=== PATIENT | female | born 1950 | race Caucasian/White ===

== ENCOUNTER 2020-09-11 13:25 | Inpatient (IN) | payer MEDICARE, OTHER ==
[~2020-09-11] VITALS: Ht 157.5 cm; Wt 48.1 kg
--- NOTE | 2020-09-11 13:35 | NUR ---
at bedside for assessment
[2020-09-11 14:18] LABS: BASOPHILS % (AUTO) 0.3 % (0.0-2.0); EOSINOPHILS % (AUTO) 0.2 % (0.0-7.0); HEMATOCRIT 37.9 % (31.2-41.9); HEMOGLOBIN 13.5 g/dL (10.9-14.3); LYMPHOCYTES # (AUTO) 1.2 K/uL (20.0-40.0); LYMPHOCYTES % (AUTO) 15.4 % (20.5-51.5); MEAN CORPUSCULAR HEMOGLOBIN 30.7 uug (24.7-32.8); MEAN CORPUSCULAR HGB CONC 36 g/dL (32.3-35.6); MEAN CORPUSCULAR VOLUME 86.4 fL (75.5-95.3); MONOCYTES # (AUTO) 0.6 K/uL (2.0-10.0); MONOCYTES % (AUTO) 8.5 % (0.0-11.0); NEUTROPHILS # (AUTO) 5.7 K/uL (1.8-8.9); NEUTROPHILS % (AUTO) 75.6 % (38.5-71.5); PLATELET COUNT (AUTO) 167 K/uL (179-408); RED BLOOD CELL COUNT(AUTO) 4.39 MIL/uL (3.63-4.92); WHITE BLOOD COUNT (AUTO) 7.6 K/uL (3.8-11.8)
[2020-09-11] MEDS ORDERED: DOCUSATE PO (14:25)
[2020-09-11] MEDS ORDERED: BENAZEPRIL PO (14:25)
[2020-09-11] MEDS ORDERED: HALO5TAB PO (14:25)
[2020-09-11] MEDS ORDERED: ROSUVASTATIN PO (14:25)
[2020-09-11] MEDS ORDERED: JANUVIA PO (14:25)
[2020-09-11] MEDS ORDERED: LEVOTHYROXIN PO (14:25)
[2020-09-11] MEDS ORDERED: AMLODIPINE PO (14:25)
[2020-09-11] MEDS ORDERED: HYDROCHLOROTHIAZIDE PO (14:25)
--- NOTE | 2020-09-11 14:25 | NUR ---
MEDICATION DOSAGES CANNOT BE CURRENTLY DETERMINED - NOT IN PATIENT'S TRANSFER RECORDS - PT IS A POOR HISTORIAN AT THIS TIME.
[2020-09-11 14:26] LABS: CARBON DIOXIDE 27 mmol/L (21-32); CHLORIDE 88 mmol/L (98-107); GLUCOSE 137 mg/dL (74-106); POTASSIUM 3.2 mmol/L (3.5-5.1); UREA NITROGEN, BLOOD 16 mg/dL (7-18)
[2020-09-11 14:31] LABS: ACETAMINOPHEN < 2.0 ug/mL (10-30); ALANINE AMINOTRANSFERASE 32 U/L (14-59); ALKALINE PHOSPHATASE 67 U/L (50-136); ASPARTATE AMINOTRANSFERASE 51 U/L (15-37); BILIRUBIN,DIRECT 0.2 mg/dL (0.0-0.2); BILIRUBIN,TOTAL 0.8 mg/dL (0.2-1.0); TOTAL PROTEIN, SERUM 7.3 g/dL (6.4-8.2)
--- NOTE | 2020-09-11 14:48 | NUR ---
patient is cleared to transfer to U, 137 B room
[2020-09-11 14:49] LABS: ETHANOL < 3 MG/DL (0-0)
[2020-09-11] MEDS ORDERED: POTASSIUM CHLORIDE 20 MEQ TAB.PRT.SR PO ONE (15:15)
[2020-09-11] MEDS ORDERED: POTASSIUM CHLORIDE 20 MEQ TAB.PRT.SR ONE (15:27)
[2020-09-11 15:44] LABS: *BILIRUBIN,URIN NEGATIVE (NEGATIVE); *BLOOD, URINE TRACE LYSED (NEGATIVE); *CLARITY,URINE CLEAR (CLEAR); *COLOR,URINE YELLOW (YELLOW); *KETONES,URINE 2+ (NEGATIVE); *UROBILINOGEN,URINE 0.2 E.U./dl (NORMAL); LEUKOCYTE ESTERASE ,URINE 2+ (NEGATIVE); NITRITE, URINE NEGATIVE (NEGATIVE); UGLUCOSE NEGATIVE (NEGATIVE)
[2020-09-11 15:51] LABS: *AMPHETAMINE, URINE NEGATIVE (NEGATIVE); *CANNABINOID, URINE NEGATIVE (NEGATIVE); *COCCAINE, URINE NEGATIVE (NEGATIVE); *OPIATE, URINE NEGATIVE (NEGATIVE); *PHENCYCLIDINE SCREEN,URINE NEGATIVE (NEGATIVE)
[2020-09-11] MEDS ORDERED: CEFTRIAXONE 1 G in IV DEXTROSE 5% 50 ML IV SCH (16:00)
[2020-09-11] MEDS ORDERED: IV NORMAL SALINE 1000 ML BAG IV ONE (16:00)
[2020-09-11] MEDS ORDERED: CEFTRIAXONE /D5W 50ML IVPB **ER PYXIS IV ONE (16:04)
[2020-09-11 17:00] VITALS: BP 116/70
[2020-09-11] MEDS ORDERED: MAGNESIUM HYDROXIDE 30 ML LIQUID UDC PO PRN (17:00)
--- NOTE | 2020-09-11 17:11 | NUR ---
Pt. admitted to MHU , under care of Dr. Paz Belongs List completed and all belongings sent
--- NOTE | 2020-09-11 18:16 | NUR ---
Admitted a 69 yers old patient from ER with 5150 for DTS,Per 5150 DTS due to client knocking on the door stating "she is depressed,paranoid, and having suicidal ideation with no specified plan.", Also,reported "hearing voices..", client presented with labile mood and yelling profanities. she became fearful, stating "she misses her father..", client was unable/unwilling to answer questions regarding mental/medical health history, appears to be responding to internal stimuli. Client needs further psychiatric evaluation. patient is A/O x3 denies any SI at this time , notified.
[2020-09-11 19:08] LABS: THYROID STIMULATING HORMONE 0.023 mIU/mL (0.358-3.740)
[2020-09-11] MEDS ORDERED: PNEUMOCOCCAL 23-VAL P-SAC VAC 0.5 ML VIAL IM ONE (20:00)
[2020-09-11 20:04] VITALS: BP 114/70
[2020-09-12] MEDS: TEMAZEPAM 7.5 MG CAPSULE PO PRN ×2 (01:37→22:14)
[2020-09-12] MEDS: ACETAMINOPHEN 325 MG TABLET PO PRN (01:37)
--- NOTE | 2020-09-12 06:51 | NUR ---
UP AND DOWN DURING THE NIGHT,TRYING TO URINATE.STAFF EXPLAINED TO PT THAT SHE HAS BLADDER INFECTION WHICH SOMETIMES MADE HER FEEL LIKE TO GO MORE OFTEN THAN NORMAL.ENC.PO FLUID,THEN FINALLY SHE WENT A LOT IN THE TOILET PLUS HER DIAPER WAS SOAKING WET TOO. WILL CONTINUE TO MONITOR.
[2020-09-12 07:30] VITALS: BP 111/54
[2020-09-12 07:45] LABS: POTASSIUM 3.4 mmol/L (3.5-5.1)
[2020-09-12 07:53] LABS: CREATININE 1.1 mg/dL (0.6-1.3)
[2020-09-12] MEDS ORDERED: POTASSIUM CHLORIDE 20 MEQ TAB.PRT.SR PO ONE (08:15)
[2020-09-12] MEDS: CEphaleXIN 500 MG CAPSULE PO SCH ×2 (08:20→21:10)
--- NOTE | 2020-09-12 11:43 | NUR ---
unable to verified home medication dosage for medication reconciliation ,will continue follow up.
[2020-09-12] MEDS ORDERED: SITA50TA PO (12:41)
[2020-09-12] MEDS ORDERED: HYDR25TA4 PO (12:41)
[2020-09-12] MEDS ORDERED: LAMO200T10 PO (12:41)
[2020-09-12] MEDS ORDERED: BENA40TA8 PO (12:41)
[2020-09-12] MEDS ORDERED: LEVO88TA5 PO (12:41)
[2020-09-12] MEDS ORDERED: ROSU10TA2 PO (12:41)
[2020-09-12] MEDS ORDERED: AMLO10TA59 PO (12:41)
[2020-09-12] MEDS ORDERED: DOCU250C14 PO (12:41)
[2020-09-12] MEDS ORDERED: PNEUMOCOCCAL 23-VAL P-SAC VAC 0.5 ML VIAL IM ONE (13:00)
--- NOTE | 2020-09-12 13:20 | NUR ---
KOURTNEY Initial Discharge Plan: Patient currently resides at [address] [place] [address] ([phone]). Patient would like to return back upon discharge. KOURTNEY spoke with Keila Barry Surgical [employer] Inspector ([phone] ext [phone]) and she stated patient can return upon discharge. KOURTNEY will continue to work with patient, family, and MD to ensure a safe and proper discharge plan.
--- NOTE | 2020-09-12 13:20 | NUR ---
KOURTNEY City Solicitor Contact: KOURTNEY spoke with Keila Barry City Solicitor ([phone]) and discussed treatment and discharge plan.
--- NOTE | 2020-09-12 13:22 | NUR ---
Firearms Report: Cost Manager completed and submitted a [employer] firearms report for 5150 danger to self certifications. A copy of report has been placed in patient chart.
[2020-09-12] MEDS ORDERED: SITAGLIPTIN PHOSPHATE PO SCH (13:30)
[2020-09-12] MEDS: HYDROCHLOROTHIAZIDE 25 MG TABLET PO SCH (14:00)
[2020-09-12] MEDS: AMLODIPINE 10 MG TABLET PO SCH (14:30)
[2020-09-12] MEDS: BENAZEPRIL HCL 20 MG TABLET PO SCH (14:30)
[2020-09-12 15:26] VITALS: BP 125/49
--- NOTE | 2020-09-12 18:12 | NUR ---
patient is A/O x3 verbalizer needs known ,patient is anxiety needy and intrusive, with poor insight and judgement.compliant with all medication ,will continue close monitoring.
[2020-09-12 20:14] VITALS: BP 116/52
[2020-09-12] MEDS ORDERED: HALOPERIDOL 5 MG TABLET PO SCH (21:00)
--- NOTE | 2020-09-13 06:52 | NUR ---
09/11/20 SODIUM CHLORIDE 0.9% IV FLUIDS STOP DATE 09/11/20 AT 1730
[2020-09-13 07:30] VITALS: BP 128/70
[2020-09-13] MEDS ORDERED: LEVOTHYROXINE SODIUM 88 MCG TABLET PO SCH (07:30)
[2020-09-13 08:05] LABS: MAGNESIUM 2.2 mg/dL (1.8-2.4); PHOSPHOROUS 2.5 mg/dL (2.5-4.9); POTASSIUM 3.7 mmol/L (3.5-5.1)
[2020-09-13 08:14] LABS: THYROID STIMULATING HORMONE 0.043 mIU/mL (0.358-3.740)
[2020-09-13] MEDS: ATORVASTATIN 20 MG TABLET PO SCH (09:02)
[2020-09-13] MEDS: CEphaleXIN 500 MG CAPSULE PO SCH ×2 (09:02→20:18)
[2020-09-13] MEDS: AMLODIPINE 10 MG TABLET PO SCH (09:02)
[2020-09-13] MEDS: BENAZEPRIL HCL 20 MG TABLET PO SCH (09:03)
[2020-09-13] MEDS: HYDROCHLOROTHIAZIDE 25 MG TABLET PO SCH (09:03)
[2020-09-13 10:00] LABS: URIC ACID 7.8 mg/dL (2.6-6.0)
[2020-09-13 16:00] VITALS: BP 151/64
[2020-09-13] MEDS: OXCARBAZEPINE 150 MG TABLET PO SCH (17:33)
[2020-09-13] MEDS: ARIPIPRAZOLE 5 MG TABLET PO SCH (20:17)
[2020-09-13 20:19] VITALS: BP 147/53
[2020-09-13] MEDS: TEMAZEPAM 7.5 MG CAPSULE PO PRN (21:21)
[2020-09-13] MEDS: ACETAMINOPHEN 325 MG TABLET PO PRN (21:21)
[2020-09-14] MEDS: LEVOTHYROXINE SODIUM 75 MCG TABLET PO SCH (06:39)
[2020-09-14 07:30] VITALS: BP 135/55
[2020-09-14] MEDS ORDERED: LEVOTHYROXINE SODIUM 88 MCG TABLET PO SCH (07:30)
--- NOTE | 2020-09-14 08:30 | NUR ---
RECEIVED PATIENT IN BED JUST FINISHED HER BREAKFAST WITH GOOD APPETITE REMAIN ON ANTIBIOTICS FOR UTI ORDERED WITH NO ADVERSE OR ALLERGIC REACTIONS AT THIS TIME PATIENT IS DEPRESSED DENIES SI ENCOURAGED TO GET OUT OF ROOM AND PARTICIPATE IN ACTIVITIES.ALL NEEDS PROVIDED WILL CONTINUE TO OBSERVE
[2020-09-14] MEDS: ARIPIPRAZOLE 5 MG TABLET PO SCH ×2 (08:32→20:06)
[2020-09-14] MEDS: CEphaleXIN 500 MG CAPSULE PO SCH ×2 (08:32→20:06)
[2020-09-14] MEDS: BENAZEPRIL HCL 20 MG TABLET PO SCH (08:32)
[2020-09-14] MEDS: ATORVASTATIN 20 MG TABLET PO SCH (08:33)
[2020-09-14] MEDS: OXCARBAZEPINE 150 MG TABLET PO SCH ×2 (08:33→16:43)
[2020-09-14] MEDS: AMLODIPINE 10 MG TABLET PO SCH (08:34)
[2020-09-14] MEDS: HYDROCHLOROTHIAZIDE 25 MG TABLET PO SCH (08:35)
--- NOTE | 2020-09-14 09:30 | NUR ---
NOTED THAT PATIENT HAS SOME SHAKING OF HER UPPER AND LOWER EXT WHEN ASKED WHY STATED DOES NOT KNOW STOPS TEMPORARILY AND STARTS AGAIN.WILL CONTINUE TO OBSERVE.
[2020-09-14] MEDS ORDERED: hydrOXYzine HCL 25 MG TABLET PO ONE (12:30)
[2020-09-14] MEDS: BENZTROPINE MESYLATE 0.5 MG TABLET PO SCH ×2 (13:44→16:43)
--- NOTE | 2020-09-14 15:18 | NUR ---
PATIENT IN ROOM CALLED ME AND REQUESTED FOR IN HER OWN WORD MOOD STABILIZER STATED THAT SHE NEEDS MEDICATION TO CALM HER DOWN SHE IS NOT AGITATED OR RESTLESS NOT BEING HYPERVOCAL AT THIS TIME SHE HAS NO PRN ORDER SO I CALLED DR MCGHEE FOR ORDER LEFT HER A MESSAGE ON HER VOICE MAIL AWAITING FOR RETURN CALL.
[2020-09-14 16:36] VITALS: BP 129/52
[2020-09-14] MEDS ORDERED: LORAZEPAM 0.5 MG TABLET PO PRN (17:30)
--- NOTE | 2020-09-14 18:00 | NUR ---
REQUESTED ME TO CALL HER FRIEND WHO IS SHE SAID WAS HER THERAPIST CALLED HER AND UNABLE TO REACH HER ASKED PATIENT IF SHE WANTED ME TO CALL HER SON INSTEAD AND SHE DECLINED.RESTING IN HER ROOM AT THIS TIME NO C/O ANY BEHAVIORAL ISSUES AT THIS TIME.
[2020-09-14 20:04] VITALS: BP 122/61
[2020-09-14] MEDS: TEMAZEPAM 7.5 MG CAPSULE PO PRN (21:56)
[2020-09-15] MEDS: LEVOTHYROXINE SODIUM 75 MCG TABLET PO SCH (06:21)
[2020-09-15 07:30] VITALS: BP 134/69
[2020-09-15] MEDS: CEphaleXIN 500 MG CAPSULE PO SCH ×2 (08:23→20:17)
[2020-09-15] MEDS: OXCARBAZEPINE 150 MG TABLET PO SCH (08:23)
[2020-09-15] MEDS: ATORVASTATIN 20 MG TABLET PO SCH (08:23)
[2020-09-15] MEDS: BENZTROPINE MESYLATE 0.5 MG TABLET PO SCH ×3 (08:23→18:03)
[2020-09-15] MEDS: ARIPIPRAZOLE 5 MG TABLET PO SCH (08:23)
[2020-09-15] MEDS: BENAZEPRIL HCL 20 MG TABLET PO SCH (08:24)
[2020-09-15] MEDS: AMLODIPINE 10 MG TABLET PO SCH (08:24)
[2020-09-15] MEDS: HYDROCHLOROTHIAZIDE 25 MG TABLET PO SCH (08:25)
--- NOTE | 2020-09-15 11:41 | NUR ---
SW Individual Therapy Note: SW met with patient today and provided brief individual counseling to address patient's presenting problem of suicidal ideation. SW assessed patient's level of suicidality. Patient expresses feeling depressed however denies current active suicidal ideation. SW helped patient identify coping skills to help with depression and anxiety. Patient demonstrates difficulty with expressing coping skills. Patient states she is "shaking" and feeling anxiety. SW attempted to calm patient's shaking and practiced breathing with patient. SW will remain available for patient for continued supportive counseling.
--- NOTE | 2020-09-15 14:54 | NUR ---
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 incontienence, assisted with her dieaper. compliant with her routine am meds. forgetfulness. Had been redirectable.
--- NOTE | 2020-09-15 15:37 | NUR ---
KOURTNEY PC Hearing: Patient had 5250 probable cause hearing today and it was upheld for grave disability.
[2020-09-15 16:00] VITALS: BP 128/70
[2020-09-15 20:10] VITALS: BP 132/70
[2020-09-15] MEDS: TEMAZEPAM 7.5 MG CAPSULE PO PRN (22:11)
--- NOTE | 2020-09-16 03:01 | NUR ---
RECEIVED PATIENT RESTING IN BED. MOOD WAS LOW AND APPEARED ANXIOUS WITH OCCASIONAL FORGETFULNESS.ABLE TO AMBULATE WITH FWW. TOOK ALL HER MEDICATIONS AND IS ON KEFLEX FOR UTI. LIBERAL FLUIDS ENCOURAGED WITH NO BURNING OR OTHER ADVERSE REACTION NOTED. LATER GIVEN RESTORIL PER HER REQUEST TO AID SLEEP.VISUAL CHECKS MADE ON HER FOR SAFETY. WILL CONTINUE TO MONITOR.
[2020-09-16] MEDS: LEVOTHYROXINE SODIUM 75 MCG TABLET PO SCH (06:37)
--- NOTE | 2020-09-16 06:45 | NUR ---
SHE SLEPT FOR 4:30 HOURS.
[2020-09-16 07:30] VITALS: BP 136/75
[2020-09-16] MEDS: BENZTROPINE MESYLATE 0.5 MG TABLET PO SCH ×3 (08:47→17:47)
[2020-09-16] MEDS: AMLODIPINE 10 MG TABLET PO SCH (08:48)
[2020-09-16] MEDS: CEphaleXIN 500 MG CAPSULE PO SCH ×2 (08:48→20:09)
[2020-09-16] MEDS: ATORVASTATIN 20 MG TABLET PO SCH (08:48)
[2020-09-16] MEDS: ARIPIPRAZOLE 5 MG TABLET PO SCH ×3 (08:48→17:47)
[2020-09-16] MEDS: OXCARBAZEPINE 150 MG TABLET PO SCH ×3 (08:49→17:47)
[2020-09-16] MEDS: BENAZEPRIL HCL 20 MG TABLET PO SCH (08:49)
[2020-09-16] MEDS: HYDROCHLOROTHIAZIDE 25 MG TABLET PO SCH (08:52)
[2020-09-16 15:24] VITALS: BP 115/65
[2020-09-16 20:05] VITALS: BP 118/58
[2020-09-16] MEDS: ACETAMINOPHEN 325 MG TABLET PO PRN (20:09)
[2020-09-16] MEDS: TEMAZEPAM 7.5 MG CAPSULE PO PRN (22:33)
[2020-09-17] MEDS: LEVOTHYROXINE SODIUM 75 MCG TABLET PO SCH (06:18)
[2020-09-17 07:30] VITALS: BP 108/47
[2020-09-17] MEDS: ARIPIPRAZOLE 5 MG TABLET PO SCH ×3 (08:49→17:23)
[2020-09-17] MEDS: BENAZEPRIL HCL 20 MG TABLET PO SCH (08:49)
[2020-09-17] MEDS: CEphaleXIN 500 MG CAPSULE PO SCH ×2 (08:49→20:57)
[2020-09-17] MEDS: BENZTROPINE MESYLATE 0.5 MG TABLET PO SCH ×3 (08:50→17:23)
[2020-09-17] MEDS: ATORVASTATIN 20 MG TABLET PO SCH (08:50)
[2020-09-17] MEDS: OXCARBAZEPINE 150 MG TABLET PO SCH ×3 (08:50→17:23)
[2020-09-17] MEDS: AMLODIPINE 10 MG TABLET PO SCH (08:50)
[2020-09-17] MEDS: HYDROCHLOROTHIAZIDE 25 MG TABLET PO SCH (09:39)
[2020-09-17] MEDS: MAG HYDROX/AL HYDROX/SIMETH 30 ML LIQUID UDC PO PRN (15:14)
[2020-09-17 16:00] VITALS: BP 112/71
[2020-09-17 17:31] LABS: CALCITRIOL VIT D,1,25 DIHYDROX 60.5
[2020-09-17 20:18] VITALS: BP 131/71
[2020-09-17] MEDS: TEMAZEPAM 7.5 MG CAPSULE PO PRN (22:49)
[2020-09-18] MEDS: MAG HYDROX/AL HYDROX/SIMETH 30 ML LIQUID UDC PO PRN ×2 (06:33→08:49)
[2020-09-18] MEDS: LEVOTHYROXINE SODIUM 75 MCG TABLET PO SCH (06:33)
[2020-09-18 07:30] VITALS: BP 136/66
[2020-09-18 07:40] LABS: BASOPHILS % (AUTO) 0.8 % (0.0-2.0); EOSINOPHILS % (AUTO) 0.9 % (0.0-7.0); HEMATOCRIT 36.2 % (31.2-41.9); HEMOGLOBIN 12.4 g/dL (10.9-14.3); LYMPHOCYTES # (AUTO) 1.3 K/uL (20.0-40.0); LYMPHOCYTES % (AUTO) 32.6 % (20.5-51.5); MEAN CORPUSCULAR HEMOGLOBIN 30.4 uug (24.7-32.8); MEAN CORPUSCULAR HGB CONC 34 g/dL (32.3-35.6); MEAN CORPUSCULAR VOLUME 89.1 fL (75.5-95.3); MONOCYTES # (AUTO) 0.4 K/uL (2.0-10.0); MONOCYTES % (AUTO) 10.8 % (0.0-11.0); NEUTROPHILS # (AUTO) 2.3 K/uL (1.8-8.9); NEUTROPHILS % (AUTO) 54.9 % (38.5-71.5); PLATELET COUNT (AUTO) 219 K/uL (179-408); RED BLOOD CELL COUNT(AUTO) 4.07 MIL/uL (3.63-4.92); WHITE BLOOD COUNT (AUTO) 4.1 K/uL (3.8-11.8)
[2020-09-18 07:57] LABS: CREATININE 0.9 mg/dL (0.6-1.3); POTASSIUM 3.2 mmol/L (3.5-5.1)
[2020-09-18] MEDS: BENAZEPRIL HCL 20 MG TABLET PO SCH (08:26)
[2020-09-18] MEDS: CEphaleXIN 500 MG CAPSULE PO SCH ×2 (08:26→20:03)
[2020-09-18] MEDS: ATORVASTATIN 20 MG TABLET PO SCH (08:26)
[2020-09-18] MEDS: OXCARBAZEPINE 150 MG TABLET PO SCH ×3 (08:27→16:20)
[2020-09-18] MEDS: AMLODIPINE 10 MG TABLET PO SCH (08:27)
[2020-09-18] MEDS: HYDROCHLOROTHIAZIDE 25 MG TABLET PO SCH (08:27)
[2020-09-18] MEDS: BENZTROPINE MESYLATE 0.5 MG TABLET PO SCH ×3 (08:27→16:20)
[2020-09-18] MEDS: ARIPIPRAZOLE 5 MG TABLET PO SCH ×3 (08:28→16:19)
[2020-09-18] MEDS ORDERED: POTASSIUM CHLORIDE 20 MEQ TAB.PRT.SR PO SCH (10:00)
[2020-09-18 15:10] VITALS: BP 106/57
[2020-09-18] MEDS: ACETAMINOPHEN 325 MG TABLET PO PRN (17:59)
[2020-09-18 20:11] VITALS: BP 119/72
[2020-09-18] MEDS: TEMAZEPAM 7.5 MG CAPSULE PO PRN (22:14)
--- NOTE | 2020-09-19 02:45 | NUR ---
patient noted sitting in her bed. 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 (actually, it is not). pt was reassured and redirected. she is able to verbally CFS. will continue to monitor.
[2020-09-19] MEDS: MAG HYDROX/AL HYDROX/SIMETH 30 ML LIQUID UDC PO PRN ×3 (04:14→20:29)
[2020-09-19] MEDS: LEVOTHYROXINE SODIUM 75 MCG TABLET PO SCH (06:18)
[2020-09-19] MEDS: PANTOPRAZOLE SODIUM 40 MG TABLET.DR PO SCH (06:18)
[2020-09-19 07:30] VITALS: BP 108/55
[2020-09-19] MEDS: AMLODIPINE 10 MG TABLET PO SCH (09:00)
[2020-09-19] MEDS: BENAZEPRIL HCL 20 MG TABLET PO SCH (09:00)
[2020-09-19] MEDS: HYDROCHLOROTHIAZIDE 25 MG TABLET PO SCH (09:00)
[2020-09-19] MEDS: OXCARBAZEPINE 150 MG TABLET PO SCH ×3 (09:08→20:29)
[2020-09-19] MEDS: ATORVASTATIN 20 MG TABLET PO SCH (09:08)
[2020-09-19] MEDS: BENZTROPINE MESYLATE 0.5 MG TABLET PO SCH ×3 (09:08→20:29)
[2020-09-19] MEDS: ARIPIPRAZOLE 5 MG TABLET PO SCH ×3 (09:08→20:29)
--- NOTE | 2020-09-19 09:39 | NUR ---
KOURTNEY Family Contact: SW received a call from patient's son, Guillaume Mosqueda ([phone]) and returned his call however left a message.
--- NOTE | 2020-09-19 12:20 | NUR ---
KOURTNEY SNF Referral: KOURTNEY faxed [facility] attention to [facility] for review and possible placement ([phone]). Addendum: 09/19/20 at 1447 by KAYLI BARROSO Patient is accepted at [facility] for placement.
[2020-09-19 15:12] VITALS: BP 136/77
--- NOTE | 2020-09-19 15:27 | NUR ---
KOURTNEY Individual Therapy Note: SW met with patient today and provided brief individual counseling to address patient's presenting problem of suicidal ideation. SW assessed patient's level of suicidality. Patient denies current suicidal ideation. SW discussed discharge planning with the patient. Patient verbalized that she would like SNF placement upon discharge. SW ensured that we will find a SNF placement for her for short-term. Patient is agreeable. SW will remain available for patient for continued supportive counseling.
[2020-09-19 20:07] VITALS: BP 128/63
[2020-09-19] MEDS: TEMAZEPAM 7.5 MG CAPSULE PO PRN (22:58)
[2020-09-20] MEDS: PANTOPRAZOLE SODIUM 40 MG TABLET.DR PO SCH (06:11)
[2020-09-20] MEDS: LEVOTHYROXINE SODIUM 75 MCG TABLET PO SCH (06:11)
[2020-09-20 08:12] VITALS: BP 123/75
[2020-09-20] MEDS: ARIPIPRAZOLE 5 MG TABLET PO SCH ×3 (08:26→20:32)
[2020-09-20] MEDS: OXCARBAZEPINE 150 MG TABLET PO SCH ×3 (08:26→20:32)
[2020-09-20] MEDS: ATORVASTATIN 20 MG TABLET PO SCH (08:26)
[2020-09-20] MEDS: BENAZEPRIL HCL 20 MG TABLET PO SCH (08:27)
[2020-09-20] MEDS: AMLODIPINE 10 MG TABLET PO SCH (08:27)
[2020-09-20] MEDS: BENZTROPINE MESYLATE 0.5 MG TABLET PO SCH ×3 (08:27→20:32)
[2020-09-20] MEDS: HYDROCHLOROTHIAZIDE 25 MG TABLET PO SCH (08:28)
[2020-09-20 16:00] VITALS: BP 137/69
[2020-09-20 20:02] VITALS: BP 116/55
[2020-09-20] MEDS: TEMAZEPAM 7.5 MG CAPSULE PO PRN (23:04)
[2020-09-21] MEDS: PANTOPRAZOLE SODIUM 40 MG TABLET.DR PO SCH (06:37)
[2020-09-21] MEDS: LEVOTHYROXINE SODIUM 75 MCG TABLET PO SCH (06:37)
[2020-09-21 07:04] LABS: EOSINOPHILS % (AUTO) 0.7 % (0.0-7.0); HEMATOCRIT 34.6 % (31.2-41.9); HEMOGLOBIN 12.3 g/dL (10.9-14.3); LYMPHOCYTES # (AUTO) 1.6 K/uL (20.0-40.0); LYMPHOCYTES % (AUTO) 38.4 % (20.5-51.5); MEAN CORPUSCULAR HEMOGLOBIN 31.5 uug (24.7-32.8); MEAN CORPUSCULAR HGB CONC 36 g/dL (32.3-35.6); MEAN CORPUSCULAR VOLUME 88.5 fL (75.5-95.3); MONOCYTES # (AUTO) 0.4 K/uL (2.0-10.0); MONOCYTES % (AUTO) 9.5 % (0.0-11.0); NEUTROPHILS # (AUTO) 2.1 K/uL (1.8-8.9); NEUTROPHILS % (AUTO) 50.4 % (38.5-71.5); PLATELET COUNT (AUTO) 212 K/uL (179-408); RED BLOOD CELL COUNT(AUTO) 3.91 MIL/uL (3.63-4.92); WHITE BLOOD COUNT (AUTO) 4.1 K/uL (3.8-11.8)
[2020-09-21 07:25] LABS: BILIRUBIN,TOTAL 0.4 mg/dL (0.2-1.0); MAGNESIUM 2.2 mg/dL (1.8-2.4); PHOSPHOROUS 2.9 mg/dL (2.5-4.9); POTASSIUM 3.6 mmol/L (3.5-5.1); TOTAL PROTEIN, SERUM 7.1 g/dL (6.4-8.2)
[2020-09-21 07:30] VITALS: BP 124/61
--- NOTE | 2020-09-21 07:59 | NUR ---
SW Discharge Note: Patient will be discharged to [facility] [address] [address] ([phone]). Patient will be provided transportation at 1:00pm via ambulance. Spoke with Eric the Admin Coordinator at the facility who states they are ready to accept the patient today. Patient is aware and agreeable with discharge plans. Patient is alert and oriented x4, is unable to plan for self-care however is willing to accept care at the facility. Patient denies any suicidal or homicidal ideation. Patient will follow-up at the facility with Psychiatrist Dr. Paz and Manager Fashion Dr. Guzman. Patient presents with calm mood and euthymic affect and shared she is looking forward to going to this new facility. Patients son, Guillaume Mosqueda ([phone]) is made aware and is agreeable with discharge plan. Patients case finisher Keila Barry ([phone]. [phone]) from [facility] is made aware of discharge plans.
[2020-09-21] MEDS: AMLODIPINE 10 MG TABLET PO SCH (09:52)
[2020-09-21] MEDS: OXCARBAZEPINE 150 MG TABLET PO SCH (09:53)
[2020-09-21] MEDS: ARIPIPRAZOLE 5 MG TABLET PO SCH (09:53)
[2020-09-21] MEDS: ATORVASTATIN 20 MG TABLET PO SCH (09:53)
[2020-09-21] MEDS: BENZTROPINE MESYLATE 0.5 MG TABLET PO SCH (09:53)
[2020-09-21] MEDS: BENAZEPRIL HCL 20 MG TABLET PO SCH (09:53)
[2020-09-21 09:54] VITALS: BP 124/61
[2020-09-21] MEDS: HYDROCHLOROTHIAZIDE 25 MG TABLET PO SCH (09:54)
--- NOTE | 2020-09-21 14:08 | NUR ---
Pt is being discharged to [facility] via ambulance. Pt is aware and willing to go. Report was called and given to YNES Reyes. Pt's room is 3A. Pt denies distress. Discharge instructions are given, belongings, including valuables were returned.
== END 2020-09-21 14:27 | DRG 885 ==
LOC: ER 13:25 → GPS 15:04
PROVIDERS: ADMIT Psychiatry & Neurology Psychosomatic Medicine; ATTEND Nurse Practitioner Acute Care
DX: F29 Unspecified psychosis not due to a substance or known physiological condition (principal); E87.1 Hypo-osmolality and hyponatremia; N39.0 Urinary tract infection, site not specified; F23 Brief psychotic disorder; T50.2X5A Adverse effect of carbonic-anhydrase inhibitors, benzothiadiazides and other diuretics, initial encounter; E03.9 Hypothyroidism, unspecified; E87.6 Hypokalemia; E78.5 Hyperlipidemia, unspecified; E83.52 Hypercalcemia; E86.1 Hypovolemia; I10 Essential (primary) hypertension; E11.9 Type 2 diabetes mellitus without complications; F31.9 Bipolar disorder, unspecified; Z79.4 Long term (current) use of insulin; Z20.822 Contact with and (suspected) exposure to COVID-19; Z73.6 Limitation of activities due to disability; F25.9 Schizoaffective disorder, unspecified; Y92.89 Other specified places as the place of occurrence of the external cause; B96.89 Other specified bacterial agents as the cause of diseases classified elsewhere
CPT/HCPCS: 36415; 71045; 82652; 83735; 83935; 83970; 84100; 84300; 84443; 84481; 84550; 85025; 87086; 90732; 93005; G0480; J0696; J7030; J7060